=== PATIENT | female | born 1995 | race African-American/Black ===

== ENCOUNTER 2020-05-15 02:47 | Inpatient (IN) ==
[2020-05-15] MEDS ORDERED: CITRIC ACID/SODIUM CITRATE 30 ML UDCUP PO ONE (03:00)
[2020-05-15] MEDS ORDERED: FAMOTIDINE 20 MG/2 ML VIAL IV ONE (03:00)
[2020-05-15] MEDS ORDERED: ceFAZolin 2,000 MG in PREMIX 1 EACH IV ONE ×2 (03:00→05:40)
[2020-05-15] MEDS: LACTATED RINGERS 1,000 ML IV SCH ×2 (03:32→07:06)
[2020-05-15 03:39] LABS: Basophils % 0.1 % (0.0-0.8); Eosinophils % 0.2 % (0.00-10.9); Hematocrit 33.5 VOL% (35.7-47.0); Hemoglobin 10.7 GM/DL (12.0-16.0); Immature Granulocytes % 0.6 %; Immature Granulocytes Absolute 0.05 #; Lymphocytes # 1.5 10*3/uL (1.4-4.0); Lymphocytes % 19.2 % (21.3-54.2); Mean Corpuscular HGB Conc 31.9 GM/DL (32-36); Mean Corpuscular Volume 82.7 FL (87-102); Mean Platelet Volume 11.9 FL (9.6-12.0); Monocytes % 7.6 % (1.7-12.7); Neutrophils % 72.3 % (38.7-73.9); Platelet Count 152 T/CUMM (130-400); Red Blood Count 4.05 MC/CUMM (3.8-5.5); Red Cell Distribution Width 14.4 % (9.3-17.3)
[2020-05-15] MEDS ORDERED: AZITHROMYCIN INJ 500 MG in SODIUM CHLORIDE 0.9% 250 ML IV ONE (03:49)
[2020-05-15 03:53] LABS: Albumin 2.6 G/DL (3.4-5.0); Bilirubin,Total 0.4 MG/DL (0.2-1.0); Calcium 8.6 MG/DL (8.5-10.1); Osmolality,Calculated 270.8 MOS/KG (273-304); Potassium 3.7 MMOL/L (3.5-5.1); Total Protein 6.5 G/DL (5.0-7.5)
[2020-05-15] MEDS ORDERED: BETAMETH SODIUM PHOS/ACETATE 30 MG/5 ML VIAL IM SCH (04:00)
[2020-05-15 04:06] LABS: Rubella Antibody IgG Result Reactive (NonReactive)
[2020-05-15 04:25] LABS: HIV Antigen/Antibody Result Nonreactive (Nonreactive); Hepatitis B Surface Ag Quant < 0.10 Index; Hepatitis B Surface Ag Result Non-Reactive (NonReactive)
[2020-05-15] MEDS ORDERED: OXYTOCIN 10 UNIT/ML VIAL ONE (04:33)
[2020-05-15] MEDS ORDERED: BUTORPHANOL 2 MG/ML VIAL ONE (05:37)
[2020-05-15] MEDS ORDERED: BUTORPHANOL 2 MG/ML VIAL IV ONE (05:38)
[2020-05-15] MEDS ORDERED: TERBUTALINE 1 MG/1 ML VIAL SUBCUT ONE (08:14)
[2020-05-15] MEDS ORDERED: OXYTOCIN/LR 30 UNIT/1,000 ML BAG IV ONE (08:45)
[2020-05-15] MEDS ORDERED: OXYTOCIN 10 UNIT/ML VIAL IM ONE (08:46)
[2020-05-15] MEDS ORDERED: METHYLERGONOVINE 0.2 MG/1 ML AMP ONE (09:18)
[2020-05-15] MEDS ORDERED: miSOPROStoL 200 MCG TABLET ONE (09:18)
[2020-05-15] MEDS ORDERED: CARBOPROST TROMETHAMINE 250 MCG/ML AMP IM ONE (09:19)
[2020-05-15] MEDS ORDERED: MORPHINE 10 MG/10 ML VIAL ONE (09:19)
[2020-05-15] MEDS ORDERED: BUPIVACAINE SPINAL 0.75% 2 ML AMP SPINAL ONE (09:20)
[2020-05-15] MEDS ORDERED: ONDANSETRON 4 MG/2 ML VIAL ONE (09:20)
[2020-05-15] MEDS ORDERED: PHENYLEPHRINE 1 MG/10 ML SYRINGE IV ONE ×2 (09:20→10:49)
[2020-05-15] MEDS ORDERED: BUPIVACAINE MPF 0.25% 30 ML VIAL ONE (09:20)
[2020-05-15] MEDS ORDERED: fentaNYL 100 MCG/2 ML VIAL ONE (10:08)
[2020-05-15] MEDS ORDERED: ACETAMINOPHEN 1,000 MG/100 ML VIAL IV ONE (10:16)
[2020-05-15 10:22] LABS: Cord Arterial Blood HCO3 21.5 MMOL/L
[2020-05-15 10:25] LABS: Cord Venous Blood HCO3 21.9 MMOL/L; Cord Venous Blood PO2 36.6
[2020-05-15] MEDS ORDERED: ACETAMINOPHEN 325 MG TABLET PO PRN (10:25)
[2020-05-15] MEDS ORDERED: ONDANSETRON 4 MG/2 ML VIAL IV PRN (10:25)
[2020-05-15] MEDS ORDERED: OXYTOCIN/LR 20 UNIT/1,000 ML BAG IV ONE (10:25)
[2020-05-15] MEDS ORDERED: RHO(D) IMMUNE GLOBULIN 300 MCG SYRINGE IM ONE (10:25)
[2020-05-15 10:28] LABS: Cord Arterial Blood HCO3 20.6 MMOL/L
[2020-05-15 10:29] LABS: Bilirubin,Urine Negative (Negative); Blood, Urine Negative (Negative); Glucose,Urine (UA) Negative (Negative); Ketones,Urine 80 mg/dL (Negative); Mucus,Urine Occasional /LPF (Occasional); Nitrite,Urine Negative (Negative); Protein,Urine Negative; Urine Appearance CLEAR (Clear); Urine Color Yellow (Yellow); Urine Specific Gravity 1.017 (1.001-1.035); Urine Urobilinogen < 2.0 EU/DL (0.2-1.0); WBC,Urine <1 /HPF (0-6)
[2020-05-15] MEDS ORDERED: LACTATED RINGERS 1,000 ML IV SCH (10:30)
[2020-05-15] MEDS ORDERED: ceFAZolin 1,000 MG in SYRINGE 1 EACH IV SCH (10:30)
[2020-05-15 10:31] LABS: Cord Venous Blood HCO3 23.3 MMOL/L; Cord Venous Blood PCO2 43.3 MMHG; Cord Venous Blood PO2 29.1 MMHG
[2020-05-15] MEDS ORDERED: diphenhydrAMINE 50 MG/1 ML VIAL IV ONE (13:22)
[2020-05-15] MEDS: ceFAZolin 1,000 MG in SYRINGE 1 EACH IV SCH (17:15)
[2020-05-15] MEDS ORDERED: hydrOXYzine HCL 25 MG/1 ML VIAL IM ONE (17:38)
[2020-05-15 18:02] LABS: Basophils % 0.1 % (0.0-0.8); Hematocrit 29.5 VOL% (35.7-47.0); Hemoglobin 9.6 GM/DL (12.0-16.0); Immature Granulocytes % 0.5 %; Immature Granulocytes Absolute 0.06 #; Lymphocytes # 0.9 10*3/uL (1.4-4.0); Lymphocytes % 6.9 % (21.3-54.2); Mean Corpuscular HGB Conc 32.5 GM/DL (32-36); Mean Corpuscular Volume 81.7 FL (87-102); Mean Platelet Volume 11.8 FL (9.6-12.0); Monocytes % 5.6 % (1.7-12.7); Neutrophils % 86.9 % (38.7-73.9); Platelet Count 151 T/CUMM (130-400); Red Blood Count 3.61 MC/CUMM (3.8-5.5); White Blood Count 13.3 T/CUMM (4-12)
[2020-05-15] MEDS: DOCUSATE SODIUM 100 MG CAPSULE PO SCH (20:34)
[2020-05-16] MEDS: ceFAZolin 1,000 MG in SYRINGE 1 EACH IV SCH (01:14)
[2020-05-16 06:30] LABS: Basophils % 0.1 % (0.0-0.8); Eosinophils % 0.1 % (0.00-10.9); Hematocrit 27.3 VOL% (35.7-47.0); Immature Granulocytes % 0.6 %; Immature Granulocytes Absolute 0.08 #; Lymphocytes # 1.7 10*3/uL (1.4-4.0); Lymphocytes % 12.5 % (21.3-54.2); Mean Corpuscular Volume 81.3 FL (87-102); Mean Platelet Volume 12.3 FL (9.6-12.0); Neutrophils % 78.7 % (38.7-73.9); Platelet Count 147 T/CUMM (130-400); Red Blood Count 3.36 MC/CUMM (3.8-5.5); Red Cell Distribution Width 14.3 % (9.3-17.3); White Blood Count 13.7 T/CUMM (4-12)
[2020-05-16] MEDS: MULTIVITAMIN (PRENATAL) TABLET PO SCH (09:14)
[2020-05-16] MEDS: DOCUSATE SODIUM 100 MG CAPSULE PO SCH ×2 (09:14→19:29)
[2020-05-16] MEDS: MAGNESIUM HYDROXIDE SUSP 30 ML UDCUP PO PRN ×2 (09:23→19:30)
[2020-05-16] MEDS: FERROUS SULFATE 325 MG TABLET PO SCH ×2 (09:24→19:29)
[2020-05-16] MEDS: IBUPROFEN 800 MG TABLET PO PRN ×2 (09:24→19:29)
[2020-05-16] MEDS: SIMETHICONE CHEW 80 MG TABLET PO PRN ×2 (09:25→19:30)
[2020-05-16] MEDS ORDERED: oxyCODONE/ACETAMINOPHEN 5-325 MG TABLET PO PRN (15:32)
[2020-05-16] MEDS ORDERED: oxyCODONE/ACETAMINOPHEN 5-325 MG TABLET ONE (15:32)
[2020-05-16] MEDS: oxyCODONE/ACETAMINOPHEN 5-325 MG TABLET PO PRN (15:41)
[2020-05-16] MEDS: METOCLOPRAMIDE 10 MG TABLET PO PRN (15:56)
[2020-05-17] MEDS ORDERED: MAGNESIUM CITRATE 300 ML BOTTLE PO ONE (00:07)
[2020-05-17] MEDS: oxyCODONE/ACETAMINOPHEN 5-325 MG TABLET PO PRN ×2 (00:24→14:09)
[2020-05-17] MEDS: METOCLOPRAMIDE 10 MG TABLET PO PRN ×3 (00:24→16:05)
[2020-05-17] MEDS: FERROUS SULFATE 325 MG TABLET PO SCH ×3 (01:32→20:38)
[2020-05-17] MEDS: DOCUSATE SODIUM 100 MG CAPSULE PO SCH ×3 (01:32→20:38)
[2020-05-17] MEDS: SIMETHICONE CHEW 80 MG TABLET PO PRN (04:16)
[2020-05-17] MEDS: IBUPROFEN 800 MG TABLET PO PRN ×2 (04:16→20:39)
[2020-05-17] MEDS: MAGNESIUM HYDROXIDE SUSP 30 ML UDCUP PO PRN (08:30)
[2020-05-17] MEDS: MULTIVITAMIN (PRENATAL) TABLET PO SCH (08:33)
[2020-05-18] MEDS: oxyCODONE/ACETAMINOPHEN 5-325 MG TABLET PO PRN (01:21)
[2020-05-18 09:07] VITALS: BP 123/69
[2020-05-18] MEDS: DOCUSATE SODIUM 100 MG CAPSULE PO SCH (09:31)
[2020-05-18] MEDS: FERROUS SULFATE 325 MG TABLET PO SCH (09:31)
[2020-05-18] MEDS: IBUPROFEN 800 MG TABLET PO PRN (09:32)
[2020-05-18] MEDS: MULTIVITAMIN (PRENATAL) TABLET PO SCH (09:32)
== END 2020-05-18 11:50 | disposition home or self-care (01) | DRG 786 ==
LOC: N.LDOUT 02:47 → N.LD 02:52 → N.OB 13:15
PROVIDERS: ADMIT Obstetrics & Gynecology; ATTEND Obstetrics & Gynecology
PROC: LDCSECT (ICD-10-PCS; 2020-05-15 09:30)